=== PATIENT | male | born 1975 | race Caucasian/White ===

== ENCOUNTER → 2017-02-16 | Outpatient (CLI) | payer OTHER ==
[~2017-02-16] MED LIST: FEXO1TAB46 PO; GADAVIST IV PRN; NXM/40 PO
--- NOTE | 2017-02-16 09:21 | DIAGNOSTIC IMAGING REPORT ---
MRI OF THE ABDOMEN COMBO CLINICAL HISTORY: Follow-up renal lesion. COMPARISON STUDY: Abdominal CT scans dated 02/10/2016 and 02/22/2015. TECHNIQUE: MRI of the abdomen is performed transverse T1 and T2-weighted sequences in the axial and coronal planes. Contrast enhanced sequences were acquired following the IV administration of 14.2 cc of Gadavist. Subtraction imaging was utilized. FINDINGS: Lower chest: No pleural effusion is identified. The heart is normal in size. A small hiatal hernia is noted. Liver: The liver is normal in size, contour, and signal intensity. No intrahepatic biliary ductal dilatation is seen. The hepatic veins and portal veins are patent. Gallbladder: Surgically absent. Spleen: The spleen is mildly enlarged, measuring 15.2 cm in length. Pancreas: Unremarkable. Adrenal glands: Unremarkable. Kidneys: The kidneys are normal in size and without hydronephrosis. The kidneys enhance and excrete symmetrically. No enhancing renal cortical mass is identified. A 2.4 cm simple cyst is noted in the upper pole the left kidney. There is a complex lesion in the interpolar right kidney seen on axial postcontrast image #39. This measures 2.1 cm and is T1 hyperintense, T2 hypointense, and does not demonstrate postcontrast enhancement. There is a 1.0 cm simple cyst immediately adjacent to this lesion. Abdominal aorta: Normal in course and caliber. Bowel: Visualized portions of the small bowel and colon show no evidence of obstruction. Peritoneum: There is no abdominal ascites. Lymphadenopathy: None. Skeletal structures: Visualized skeletal structures times are normal marrow signal intensity. IMPRESSION: 1. No enhancing renal cortical mass is identified. 2. The 2.1 cm complex lesion of interest in the interpolar right kidney is consistent with a complex proteinaceous/hemorrhagic cyst. 3. Mild splenomegaly. 4. Additional findings as above. Electronically signed by: Umesh Vaz M.D. 02/16/2017 9:19 AM Dictated Date/Time: 02/16/2017 9:09 AM
== END | disposition home or self-care (01) ==
LOC: C.MRIBC 07:43
PROVIDERS: ATTEND Urology
DX: N28.1 Cyst of kidney, acquired (principal); N28.89 Other specified disorders of kidney and ureter; K44.9 Diaphragmatic hernia without obstruction or gangrene